=== PATIENT | female | born 1960 ===

== ENCOUNTER 2017-05-22 22:44 | Emergency (ER) | payer MEDICAID ==
[2017-05-22 22:45] VITALS: BMI 34.0
[2017-05-22 22:58] VITALS: TEMP 97.8
[2017-05-23 00:01] VITALS: PULSE 71; RESP 18; O2SAT 98
--- NOTE | 2017-05-23 00:10 | C.PDOC ---
History Of Present Illness 54 year old female who presents to the ER with a complaint of neck pain and headache pain consistent with her fibromyalgia. Patient is requesting a refill of her valium tablets. [facility] reviewed, patient was found to have refills and many prescribers. Time Seen by Provider: 05/22/17 23:45 Chief Complaint (Nursing): Chest Pain History Per: Patient History/Exam Limitations: no limitations Onset/Duration Of Symptoms: Days Current Symptoms Are (Timing): Still Present Associated Symptoms: denies: Nausea, Dyspnea, Diaphoresis Modifying Factors: None Exacerbating Factors: None Alleviating Factors: None Recent travel outside of the [place]: No Past Medical History Reviewed: Historical Data, Nursing Documentation, Vital Signs Vital Signs: Last Vital Signs Temp 97.8 F 05/22/17 22:56 Pulse 71 05/23/17 00:00 Resp 18 05/23/17 00:00 BP 145/69 05/23/17 00:00 Pulse Ox 98 05/23/17 03:30 - Medical History PMH: Arthritis, CAD, Depression, Diabetes, Fibromyalgia, HTN, Hypercholesterolemia, Migraine Surgical History: Cholecystectomy, Endoscopy - [facility] Procedures APPLICATION OF SPLINT (11/09/14) Family History: States: Unknown Family Hx - Social History Hx Tobacco Use: No Hx Alcohol Use: No Hx Substance Use: No - Immunization History Hx Tetanus Toxoid Vaccination: Yes Hx Influenza Vaccination: Yes Hx Pneumococcal Vaccination: Yes Review Of Systems Constitutional: Negative for: Fever, Chills Gastrointestinal: Negative for: Nausea, Vomiting Musculoskeletal: Positive for: Neck Pain Neurological: Positive for: Headache Physical Exam - Physical Exam Appears: Non-toxic, No Acute Distress, Other (Anxious) Skin: Normal Color, Warm, Dry Head: Atraumatic, Normacephalic Oral Mucosa: Moist Neck: Normal ROM, Paracervical Tenderness (Trapezious) Chest: Symmetrical, No Tenderness Cardiovascular: Rhythm Regular, No Murmur Respiratory: Normal Breath Sounds, No Rales, No Rhonchi, No Wheezing Gastrointestinal/Abdominal: Soft, No Tenderness Neurological/Psych: Oriented x3, Normal Speech, Normal Cognition ED Course And Treatment ECG: Interpreted By Me, Viewed By Me ECG Rhythm: Sinus Rhythm ECG Interpretation: Normal Rate From EC O2 Sat by Pulse Oximetry: 98 (Room air) Pulse Ox Interpretation: Normal Progress Note: EKG ordered. Ultram and motrin administered. Medical Decision Making Medical Decision Making: anxiety/fibromyalgia normal neuro/cardio eval-nl ekg ? drug seeking- asking for 5 tabs of valium [place] reviewed, may prescribers for valium x 5 tabs Explained we cannot/will not refill chronic meds- verbalized understanding. Disposition Doctor Will See Patient In The: Office Counseled Patient/Family Regarding: Studies Performed, Diagnosis - Disposition Referrals: Leyda Rae MD [Medical Doctor] - Disposition: HOME/ ROUTINE Disposition Time: 00:10 Condition: GOOD Additional Instructions: no esta permitido rellenar ayesha medicamentos controllados en la so de emergencias Sigue Ibuprofeno 600 mg o' tylenol 1000 mg cada 6 horas jenny necessario Sigue con harry Medico. Instructions: General Headache (ED) Forms: [employer] (Pakistani) Print Language: INDONESIAN - Clinical Impression Clinical Impression: Anxiety, Chronic headache disorder - Scribe Statement The provider has reviewed the documentation as recorded by the Scribarvind Tony All medical record entries made by the Scribe were at my direction and personally dictated by me. I have reviewed the chart and agree that the record accurately reflects my personal performance of the history, physical exam, medical decision making, and the department course for this patient. I have also personally directed, reviewed, and agree with the discharge instructions and disposition.
[2017-05-23 00:21] VITALS: BP 145/69
--- NOTE | 2017-05-25 13:09 | CARD ---
APPROVED REPORT EKG Measurement Heart [id number] <Conclusion> Normal sinus rhythm Cannot rule out Inferior infarct, age undetermined Abnormal ECG
== END 2017-05-23 00:21 | disposition home or self-care (01) ==
LOC: C.ER 22:44
DX: F41.9 Anxiety disorder, unspecified (principal); G89.29 Other chronic pain; R51 Headache

== ENCOUNTER 2017-08-20 21:31 | Emergency (ER) | payer MEDICAID ==
[2017-08-20 21:31] VITALS: BMI 34.0
[2017-08-20 21:36] VITALS: TEMP 97.7; O2SAT 97
--- NOTE | 2017-08-20 22:35 | C.PDOC ---
History Of Present Illness Patient is a 56 y/o female who presents to the ED c/o sharp, intermittent headache pains in the left head area 3-4 times per day and requests refills of narcotic pain relievers. Patient has a Hx of chronic VÁSQUEZ; admits to seeing neurologist and has Fioricet at home. Patient reports to have been VÁSQUEZ free for a few weeks. No other physical complaints at this time. chronic headaches, fibromyalgia, anxiety, ? drug seeking [place] [employer] reviewed- 08/04/17 Rx from another prescriber in . reading, smiling, using telephone, NAD, certainly does not seem to be narcotic level pain Pt has neurologist and Fioricet to use @ home, follow-up pending. AGAIN explained unable to refill controlled substances for chronic issues (as in our prior visit 06/04) Time Seen by Provider: 08/20/17 22:21 Chief Complaint (Nursing): Headache History Per: Patient History/Exam Limitations: no limitations Onset/Duration Of Symptoms: Intermittent Episodes Quality: Sharp Recent travel outside of the [place]: No Past Medical History Reviewed: Historical Data, Nursing Documentation, Vital Signs Vital Signs: Last Vital Signs Temp 97.7 F 08/20/17 21:34 Pulse 78 08/20/17 22:44 Resp 20 08/20/17 22:44 BP 132/78 08/20/17 22:44 Pulse Ox 97 08/20/17 22:44 - Medical History PMH: Arthritis, CAD, Depression, Diabetes, Fibromyalgia, HTN, Hypercholesterolemia, Migraine Denies: HIV, Chronic Kidney Disease, Seizures, Sexually Transmitted Disease Surgical History: Cholecystectomy, Endoscopy - [facility] Procedures APPLICATION OF SPLINT (11/09/14) Family History: States: Unknown Family Hx - Social History Hx Tobacco Use: No Hx Alcohol Use: No Hx Substance Use: No - Immunization History Hx Tetanus Toxoid Vaccination: Yes Hx Influenza Vaccination: Yes Hx Pneumococcal Vaccination: Yes Review Of Systems Constitutional: Negative for: Fever, Chills Gastrointestinal: Negative for: Nausea, Vomiting Neurological: Positive for: Headache (left head area ) Physical Exam - Physical Exam Appears: Well, Non-toxic, No Acute Distress, Other (smiling) Skin: Normal Color, Warm, Dry Head: Atraumatic, Normacephalic Eye(s): bilateral: Photophobia (negative) Oral Mucosa: Moist Chest: Symmetrical Cardiovascular: Rhythm Regular, No Murmur Respiratory: Normal Breath Sounds, No Rales, No Rhonchi, No Wheezing Neurological/Psych: Oriented x3, Normal Speech, Normal Cognition, Other (no focal deficits) ED Course And Treatment O2 Sat by Pulse Oximetry: 97 Disposition Doctor Will See Patient In The: Office Counseled Patient/Family Regarding: Studies Performed, Diagnosis - Disposition Referrals: Leyda Rae MD [Medical Doctor] - Disposition: HOME/ ROUTINE Disposition Time: 22:35 Condition: GOOD Additional Instructions: favor de seguir con harry neurologo para rellenos de ayesha medicamentos de sustancias controlladas. Instructions: Cluster Headache (ED) Forms: [employer] (Georgian) Print Language: CITIZEN OF [place] - Clinical Impression Clinical Impression: Chronic headache disorder - Scribe Statement The provider has reviewed the documentation as recorded by the Scribe Mary Anne Quintana All medical record entries made by the Scribe were at my direction and personally dictated by me. I have reviewed the chart and agree that the record accurately reflects my personal performance of the history, physical exam, medical decision making, and the department course for this patient. I have also personally directed, reviewed, and agree with the discharge instructions and disposition.
[2017-08-20 22:46] VITALS: BP 132/78; PULSE 78; RESP 20
== END 2017-08-20 22:44 | disposition home or self-care (01) ==
LOC: C.ER 21:31
DX: G89.29 Other chronic pain (principal); R51 Headache; E11.9 Type 2 diabetes mellitus without complications; E78.00 Pure hypercholesterolemia, unspecified; I10 Essential (primary) hypertension; M79.7 Fibromyalgia; I25.10 Atherosclerotic heart disease of native coronary artery without angina pectoris

== ENCOUNTER 2018-01-26 00:13 | Emergency (ER) | payer MEDICAID ==
[2018-01-26 00:40] VITALS: BMI 26.6
[2018-01-26 00:44] VITALS: BP 131/82; PULSE 82; RESP 22; TEMP 97.3; O2SAT 98
--- NOTE | 2018-01-26 01:14 | C.PDOC ---
History Of Present Illness 57 year old female presents to the emergency department complaining of right wrist pain, onset today. Patient states she was "playing with a door" and got her right wrist caught in the door frame. She is able to move all fingers. No changes in sensation. Time Seen by Provider: 01/26/18 00:42 Chief Complaint (Nursing): Upper Extremity Problem/Injury History Per: Patient History/Exam Limitations: no limitations Onset/Duration Of Symptoms: Days (x1) Current Symptoms Are (Timing): Still Present Past Medical History Reviewed: Historical Data, Nursing Documentation, Vital Signs Vital Signs: Last Vital Signs Temp 97.3 F L 01/26/18 00:40 Pulse 82 01/26/18 00:40 Resp 22 01/26/18 00:40 BP 131/82 01/26/18 00:40 Pulse Ox 98 01/26/18 01:43 - Medical History PMH: Arthritis, CAD, Depression, Diabetes, Fibromyalgia, HTN, Hypercholesterolemia, Migraine Denies: HIV, Chronic Kidney Disease, Seizures, Sexually Transmitted Disease Surgical History: Cholecystectomy, Endoscopy - [facility] Procedures APPLICATION OF SPLINT (11/09/14) Family History: States: Unknown Family Hx - Social History Hx Tobacco Use: No Hx Alcohol Use: No Hx Substance Use: No - Immunization History Hx Tetanus Toxoid Vaccination: Yes Hx Influenza Vaccination: Yes Hx Pneumococcal Vaccination: Yes Review Of Systems Musculoskeletal: Positive for: Hand Pain (right wrist) Neurological: Negative for: Weakness, Numbness Physical Exam - Physical Exam Appears: Non-toxic, No Acute Distress Skin: Warm, Dry, No Rash Head: Atraumatic, Normacephalic Eye(s): bilateral: Normal Inspection Extremity: Normal ROM, Tenderness (mild tenderness to right wrist), Capillary Refill (< 2 sec), No Deformity, Other (round ecchymotic lesion noted to right radial wrist, with abrasion to the ulnar wrist) Pulses: Left Radial: Normal, Right Radial: Normal Neurological/Psych: Oriented x3, Normal Speech, No Other (focal deficits) ED Course And Treatment O2 Sat by Pulse Oximetry: 98 (RA) Pulse Ox Interpretation: Normal - Other Rad X-Ray Right Wrist X-Ray: Interpreted by Me, Viewed By Me Interpretation: Negative fracture, negative dislocation Medical Decision Making Medical Decision Making: Impression: Right wrist injury Plan: * Toradol 30 mg IM * X-Ray right wrist Progress: Xray negative for fracture. On reevaluation patient reports improvement in pain. Informed patient of negative x-ray. Velcro volar splint applied to right wrist by RN. Patient counseled regarding diagnosis and advised to follow up with orthopedist for persistent symptoms. Disposition Counseled Patient/Family Regarding: Diagnosis, Need For Followup, Rx Given - Disposition Referrals: Jan Burgess III, MD [Staff Provider] - Disposition: HOME/ ROUTINE Disposition Time: 01:12 Condition: GOOD Additional Instructions: Tu radiografa fue normal, sin fractura. Por favor aplique hielo en el cr 15 minutos lazaro veces al da. [place] Motrin con Pepcid segn sea necesario para el dolor cada 6 horas, para no alterar el estmago. Delia un seguimiento con ortopedia si el dolor persiste annamaria hayden semana. Prescriptions: Famotidine [Pepcid] 20 mg PO DAILY #20 tab Ibuprofen [Motrin] 1 tab PO TID PRN #30 tab PRN Reason: Pain Instructions: Contusion (DC) Forms: [employer] (Sierra Leonean) Print Language: INDONESIAN - POA Present On Arrival: None - Clinical Impression Clinical Impression: Wrist contusion - PA / SOCIAL WORK ASSOCIATE / Resident Statement MD/DO has reviewed & agrees with the documentation as recorded. - Scribe Statement The provider has reviewed the documentation as recorded by the Scribe (Feli Colon) All medical record entries made by the Scribe were at my direction and personally dictated by me. I have reviewed the chart and agree that the record accurately reflects my personal performance of the history, physical exam, medical decision making, and the department course for this patient. I have also personally directed, reviewed, and agree with the discharge instructions and disposition.
--- NOTE | 2018-01-26 12:51 | RAD ---
PROCEDURE: Right Wrist Radiographs. HISTORY: pain s.p injury, door closed COMPARISON: None. FINDINGS: BONES: Normal. No fracture. JOINTS: Minimal arthropathic changes: Radiocarpal and metacarpal joint. No dislocation. SOFT TISSUES: Normal. OTHER FINDINGS: None. IMPRESSION: No fracture or dislocation. . Mild arthropathic changes
== END 2018-01-26 01:23 | disposition home or self-care (01) ==
LOC: C.ER 00:13
DX: S60.211A Contusion of right wrist, initial encounter (principal); W23.0XXA Caught, crushed, jammed, or pinched between moving objects, initial encounter
CPT/HCPCS: 73110; 96372; 99284; J1885

== ENCOUNTER 2018-02-20 21:50 | Emergency (ER) | payer MEDICAID ==
[2018-02-20 21:50] VITALS: BMI 26.6
[2018-02-20 22:09] VITALS: BP 131/84; PULSE 86; RESP 20; TEMP 97.8; O2SAT 98
--- NOTE | 2018-02-20 22:26 | C.PDOC ---
History Of Present Illness 57 yo female w/PMHx of NIDDM, chronic headache, seasonal allergy come in for evaluation of B/L eyes redness, itchiness, clear discharges gradually developed for past 2 days, (+) nasal congestion, clear rhinorrhea. Pt reports, use antihistamine eye drops, Claritin without improvement. Otherwise, pt denies high fever, chills, headache, vertigo, visual changes, focal deficits, bluury vision, FB sensation, pain on eye movement, throat tightness or swelling, dysphagia, dyspnea, SOB, wheezing, abd. pain, N/V, denies any other active complaints. Ambulate to Ed for evaluation, not in any apparent distress. Time Seen by Provider: 02/20/18 22:10 Chief Complaint (Nursing): ENT Problem History Per: Patient Past Medical History Reviewed: Historical Data, Nursing Documentation, Vital Signs Vital Signs: Last Vital Signs Temp 97.8 F 02/20/18 22:05 Pulse 86 02/20/18 22:05 Resp 20 02/20/18 22:05 BP 131/84 02/20/18 22:05 Pulse Ox 98 02/20/18 22:05 - Medical History PMH: Arthritis, CAD, Depression, Diabetes, Fibromyalgia, HTN, Hypercholesterolemia, Migraine Denies: HIV, Chronic Kidney Disease, Seizures, Sexually Transmitted Disease Surgical History: Cholecystectomy, Endoscopy - [facility] Procedures APPLICATION OF SPLINT (11/09/14) Family History: States: Unknown Family Hx - Social History Hx Tobacco Use: No Hx Alcohol Use: No Hx Substance Use: No - Immunization History Hx Tetanus Toxoid Vaccination: Yes Hx Influenza Vaccination: Yes Hx Pneumococcal Vaccination: Yes Review Of Systems Except As Marked, All Systems Reviewed And Found Negative. Constitutional: Negative for: Fever, Chills Eyes: Positive for: Conjunctivae Inflammation, Redness. Negative for: Pain, Vision Change, Eyelid Inflammation ENT: Positive for: Nose Congestion. Negative for: Ear Discharge, Nose Discharge , Throat Pain, Throat Swelling Cardiovascular: Negative for: Chest Pain, Palpitations, Light Headedness Respiratory: Negative for: Cough, Shortness of Breath, Wheezing Gastrointestinal: Negative for: Nausea, Vomiting, Abdominal Pain Musculoskeletal: Negative for: Neck Pain Skin: Negative for: Rash Neurological: Negative for: Weakness, Numbness, Altered Mental Status, Headache , Dizziness Physical Exam - Physical Exam Appears: Well, Non-toxic, No Acute Distress Skin: Normal Color, Warm, Dry, No Rash Head: Normacephalic Eye(s): bilateral: PERRL, EOMI (no pain or limitation on extraocular movement B/ L), Other (scant periorbital edema and erythema. Mild conjunctival injection L> R with clear discharges. No periorbital cellulitis.) Ear(s): Bilateral: Normal Nose: No Flaring, Discharge (B/L nasal congestion with scant clear rhinorrhea) Oral Mucosa: Moist, No Drooling Tongue: Normal Appearing, No Swelling Lips: Normal Appearing, No Swelling Throat: No Erythema, No Drooling, Other (Uvula midline, no edema) Neck: Trachea Midline, Supple Cardiovascular: Rhythm Regular, No Murmur, No JVD Respiratory: No Decreased Breath Sounds, No Accessory Muscle Use, No Stridor, No Wheezing Extremity: Normal ROM, No Deformity, No Swelling Neurological/Psych: Oriented x3, Normal Speech ED Course And Treatment O2 Sat by Pulse Oximetry: 98 Pulse Ox Interpretation: Normal Progress Note: On re-evaluation, pt is afebrile, hemodynamicaly stable. Non- toxic. PulsEOx 98% RA. ENT: no acute findings, uvula midline, no edema. Eyes : exam c/w scant periorbital edema and erythema with mild conjunctival injection , clear discharge r/o allergic conjunctivitis. No pain or limitation on extraocular movement. No evidence of periorbital cellulitis. neck: Supple, (-) meningeal sign. Lungs: CTA B/L, BS equal B/L. Neuorlogicaly intact. Pt advised onc oruse of ds. ref. to f/u with PMD, opht in 2-3 days for re-eval. return to Ed if any worsening ro new changes. Disposition Counseled Patient/Family Regarding: Diagnosis, Need For Followup, Rx Given - Disposition Referrals: Suyapa Cisneros MD [Medical Doctor] - Rocael Graves MD [Staff Provider] - Disposition: HOME/ ROUTINE Disposition Time: 22:25 Condition: STABLE Additional Instructions: Encourage fluids Cold compresses to eyes area Take medication as prescribed Continue Claritin daily, Ketotifen eyes drops as need Follow up with PMD, Ophthalmology in 2-3 days for re-evaluation. Return to ED if any worsening or new changes. Prescriptions: Prednisone [Deltasone] 40 mg PO DAILY #8 tablet Instructions: Seasonal Allergies in Adults Print Language: BRITISH - Clinical Impression Clinical Impression: Allergic conjunctivitis, Seasonal allergies
== END 2018-02-20 23:00 | disposition home or self-care (01) ==
LOC: C.ER 21:50
DX: H10.13 Acute atopic conjunctivitis, bilateral (principal); J30.2 Other seasonal allergic rhinitis

== ENCOUNTER 2018-03-26 22:55 | Emergency (ER) | payer MEDICAID ==
[2018-03-26 22:55] VITALS: BMI 26.6
[2018-03-26 23:03] VITALS: BP 127/80; PULSE 80; RESP 15; TEMP 98.1; O2SAT 98
--- NOTE | 2018-03-27 00:42 | C.PDOC ---
History Of Present Illness 57 y/o female, whose PMHx includes Fibromyalgia, presents to the ED for evaluation of right leg pain x 1 week. Patient describes symptoms are a burning sensation to her right posterior thigh which radiates down to her right calf. Patient has been applying a topical gel without relief. She denies rash, trauma , extremity numbness/weakness, or recent travel. Time Seen by Provider: 03/26/18 23:23 Chief Complaint (Nursing): Lower Extremity Problem/Injury History Per: Patient History/Exam Limitations: no limitations Onset/Duration Of Symptoms: Other (1 week) Current Symptoms Are (Timing): Still Present Recent travel outside of the [place]: No Past Medical History Reviewed: Historical Data, Nursing Documentation, Vital Signs Vital Signs: Last Vital Signs Temp 98.1 F 03/26/18 23:01 Pulse 80 03/26/18 23:01 Resp 15 03/26/18 23:01 BP 127/80 03/26/18 23:01 Pulse Ox 98 03/27/18 06:31 - Medical History PMH: Arthritis, CAD, Depression, Diabetes, Fibromyalgia, HTN, Hypercholesterolemia, Migraine Denies: HIV, Chronic Kidney Disease, Seizures, Sexually Transmitted Disease Surgical History: Cholecystectomy, Endoscopy - [facility] Procedures APPLICATION OF SPLINT (11/09/14) Family History: States: Unknown Family Hx - Social History Hx Tobacco Use: No Hx Alcohol Use: No Hx Substance Use: No - Immunization History Hx Tetanus Toxoid Vaccination: Yes Hx Influenza Vaccination: Yes Hx Pneumococcal Vaccination: Yes Review Of Systems Except As Marked, All Systems Reviewed And Found Negative. Musculoskeletal: Positive for: Leg Pain (right) Skin: Negative for: Rash Neurological: Negative for: Weakness, Numbness Physical Exam - Physical Exam Appears: Non-toxic, No Acute Distress, Other (mildly obese female ) Skin: Normal Color, Warm, Dry, No Rash Head: Atraumatic, Normacephalic Eye(s): bilateral: Normal Inspection, PERRL, EOMI Oral Mucosa: Moist Throat: No Erythema, No Exudate Neck: Normal ROM, Supple Chest: Symmetrical, No Deformity, No Tenderness Cardiovascular: Rhythm Regular, No Friction Rub, No Murmur Respiratory: Normal Breath Sounds, No Rales, No Rhonchi, No Wheezing Gastrointestinal/Abdominal: Soft, No Tenderness Back: Normal Inspection, No CVA Tenderness, No Vertebral Tenderness, No Paraspinal Tenderness Extremity: Normal ROM, No Calf Tenderness, Capillary Refill (less than 2 seconds ), No Deformity, No Swelling, Other ((+) tenderness to the posterior thigh) Pulses: Left Dorsalis Pedis: Normal, Right Dorsalis Pedis: Normal Neurological/Psych: Oriented x3, Normal Speech, Normal Cognition, Normal Motor, Normal Sensation Gait: Steady ED Course And Treatment O2 Sat by Pulse Oximetry: 98 (on RA) Pulse Ox Interpretation: Normal Medical Decision Making Medical Decision Making: Progress: Right Femur XR and Right TIb/Fib XR ordered. D-Dimer ordered. Ultram PO given. On re-exam, the patient reports improvement of symptoms. Lungs are CTA, heart is RRR, abdomen is soft, non-tender and tolerating PO well . ambulatory in the ED with steady gait with cane. Follow up with the medical doctor within 1-2 days. Return if worsened. Disposition - Disposition Referrals: [facility] [Outside] Disposition: HOME/ ROUTINE Disposition Time: 00:39 Condition: FAIR Additional Instructions: Follow up with the medical doctor within 1-2 days without fail, return if worsened. Prescriptions: Acetaminophen [Tylenol] 325 mg PO Q6 PRN #30 tab PRN Reason: Pain, Mild (1-3) traMADol [Ultram] 50 mg PO Q6 PRN #15 tab PRN Reason: Pain Instructions: Muscle Spasms (DC) Forms: [employer] (Turkmen) Print Language: ESTONIAN - Clinical Impression Clinical Impression: Muscle cramp - PA / KENNEL MANAGER DOG TRACK / Resident Statement MD/DO has reviewed & agrees with the documentation as recorded. - Scribe Statement The provider has reviewed the documentation as recorded by the Scribe (Fallon Hanna) All medical record entries made by the Scribe were at my direction and personally dictated by me. I have reviewed the chart and agree that the record accurately reflects my personal performance of the history, physical exam, medical decision making, and the department course for this patient. I have also personally directed, reviewed, and agree with the discharge instructions and disposition.
--- NOTE | 2018-03-27 14:52 | RAD ---
PROCEDURE: Radiographs of the right tibia and fibula. HISTORY: pain to the rangel, non-trauma COMPARISON: None available. TECHNIQUE: Frontal and lateral views obtained. FINDINGS: BONES: No fracture or destructive lesion. JOINT SPACES: Unremarkable. OTHER FINDINGS: Calcaneus spur is noted. IMPRESSION: No evidence of acute pathology or destructive bony lesion.
--- NOTE | 2018-03-27 14:56 | RAD ---
PROCEDURE: Right Femur Radiographs. HISTORY: pain to the femur, COMPARISON: None. TECHNIQUE: AP and Lateral Radiographs of the right femur. FINDINGS: FEMUR: Normal. No fracture. SOFT TISSUES: Normal. OTHER FINDINGS: None. IMPRESSION: No evidence of acute fracture or destructive bony lesion.
== END 2018-03-27 00:51 | disposition home or self-care (01) ==
LOC: C.ER 22:55
DX: R25.2 Cramp and spasm (principal); I10 Essential (primary) hypertension; E11.9 Type 2 diabetes mellitus without complications; E78.00 Pure hypercholesterolemia, unspecified; M79.7 Fibromyalgia

== ENCOUNTER 2018-05-16 20:44 | Emergency (ER) | payer MEDICAID ==
[2018-05-16 20:45] VITALS: BMI 26.6
[2018-05-16 21:28] VITALS: BP 116/71; PULSE 75; TEMP 98; O2SAT 97
--- NOTE | 2018-05-16 22:18 | C.PDOC ---
History Of Present Illness 57yo female, comes to ER with complaints of pain and swelling to the left side of her neck, worsened with swallowing. Otherwise, patient denies any associated fever, chills, cough, vomiting, headache or dizziness. She offers no additional medical complaints. Time Seen by Provider: 05/16/18 21:32 Chief Complaint (Nursing): ENT Problem History Per: Patient History/Exam Limitations: None Onset/Duration Of Symptoms: Days Current Symptoms Are (Timing): Still Present Past Medical History Reviewed: Historical Data, Nursing Documentation, Vital Signs Vital Signs: Last Vital Signs Temp 98 F 05/16/18 21:22 Pulse 75 05/16/18 21:22 Resp 20 05/16/18 22:26 BP 116/71 05/16/18 21:22 Pulse Ox 97 05/17/18 01:31 - Medical History PMH: Arthritis, CAD, Depression, Diabetes, Fibromyalgia, HTN, Hypercholesterolemia, Migraine Denies: HIV, Chronic Kidney Disease, Seizures, Sexually Transmitted Disease Surgical History: Cholecystectomy, Endoscopy - [facility] Procedures APPLICATION OF SPLINT (11/09/14) Family History: States: Unknown Family Hx - Social History Hx Tobacco Use: No Hx Alcohol Use: No Hx Substance Use: No - Immunization History Hx Tetanus Toxoid Vaccination: Yes Hx Influenza Vaccination: Yes Hx Pneumococcal Vaccination: Yes Review Of Systems Constitutional: Negative for: Fever, Chills Respiratory: Negative for: Cough Gastrointestinal: Negative for: Vomiting Musculoskeletal: Positive for: Other (swelling to left side of neck) Neurological: Negative for: Headache, Dizziness Physical Exam - Physical Exam Appears: Non-toxic Skin: Warm, Dry Head: Normacephalic Eye(s): bilateral: Normal Inspection Ear(s): Bilateral: Normal Nose: Normal Oral Mucosa: Moist Throat: Erythema, No Exudate, No Drooling, No Mass, Other (+ left tonsil swelling or erythema; + uvula midline) Neck: Normal ROM, Supple Lymphatic: Adenopathy (left submandibular lymphadenopathy with tenderness) Chest: Symmetrical Cardiovascular: Rhythm Regular Respiratory: Normal Breath Sounds Neurological/Psych: Oriented x3 ED Course And Treatment O2 Sat by Pulse Oximetry: 97 (RA) Pulse Ox Interpretation: Normal Progress Note: Patient given Motrin and first dose of antibiotics in ER. Instructed to take medications as prescribed and to follow up with PMD in 2-3 days. Reassessment Condition: Improved Disposition Counseled Patient/Family Regarding: Diagnosis, Need For Followup, Rx Given - Disposition Referrals: [facility] [Outside] PMD, Private [Other] Disposition: HOME/ ROUTINE Disposition Time: 22:16 Condition: STABLE Additional Instructions: Gargle with warm salt water Take medications as directed Follow up with PMD Return to ER if worse Prescriptions: Ibuprofen [Motrin] 600 mg PO Q6H #20 tab Penicillin VK [Penicillin VK Tab] 2 tab PO BID #28 tab Instructions: Sore Throat, Adult (DC) Forms: [employer] (Cameroonian) Print Language: CROATIAN - Clinical Impression Clinical Impression: Pharyngitis, Lymphadenitis, acute - PA / SALES AND MARKETING REPRESENTATIVE / Resident Statement MD/DO has reviewed & agrees with the documentation as recorded. - Scribe Statement The provider has reviewed the documentation as recorded by the Angely Correa Provider Attestation: All medical record entries made by the Angely were at my direction and personally dictated by me. I have reviewed the chart and agree that the record accurately reflects my personal performance of the history, physical exam, medical decision making, and the department course for this patient. I have also personally directed, reviewed, and agree with the discharge instructions and disposition.
[2018-05-16 22:27] VITALS: RESP 20
== END 2018-05-16 22:26 | disposition home or self-care (01) ==
LOC: C.ER 20:44
DX: J02.9 Acute pharyngitis, unspecified (principal); L04.9 Acute lymphadenitis, unspecified

== ENCOUNTER 2018-08-10 20:17 | Observation (INO) | payer MEDICAID ==
[2018-08-10 20:18] VITALS: BMI 26.6
[2018-08-10 21:01] LABS: BASO % 0.6 % (0.0-2.0); EOS % 0.5 % (0.0-4.0); HEMOGLOBIN 12.6 g/dL (11.0-16.0); LYMPH # 1.6 K/uL (1.0-4.3); LYMPH % 24.1 % (20.0-40.0); MEAN CORPUSCULAR HEMOGLOBIN 26.7 pg (27.0-31.0); MEAN CORPUSCULAR HGB CONC 32.9 g/dL (33.0-37.0); MEAN PLATELET VOLUME 7.2 fL (7.2-11.7); MONO # 0.5 K/uL (0.0-0.8); MONO % 8.2 % (0.0-10.0); NEUT # 4.3 K/uL (1.8-7.0); NEUT % 66.6 % (50.0-75.0); NRBC % 0.2 % (0.0-2.0); RBC 4.72 Mil/uL (3.80-5.20); RED CELL DISTRIBUTION WIDTH 14.5 % (11.5-14.5); WHITE BLOOD COUNT 6.5 K/uL (4.8-10.8)
[2018-08-10 21:03] LABS: MEAN CELL VOLUME 81.2 fL (81.0-99.0)
[2018-08-10 21:09] LABS: ALB/GLOB RATIO 1.2 (1.0-2.1); ALBUMIN 4.5 g/dL (3.5-5.0); ALT/SGPT 33 U/L (9-52); AST/SGOT 49 U/L (14-36); BLOOD UREA NITROGEN 8 mg/dL (7-17); CALCIUM 9.2 mg/dl (8.6-10.4); GFR NON-AFRICAN AMERICAN > 60; INR 1.1
--- NOTE | 2018-08-10 21:15 | C.PDOC ---
History Of Present Illness 57 year old female with PMHx of HTN, DM and fibromyalgia presents to the ED c/o SOB associated with chest pain, generalized body aches and headache for the past 3 days. Patient reports she feels SOB when she talks. Patient recently got back from [place] on Thursday, patient states she as feeling SOB on the plane and the hatchery attendant gave her some oxygen. Patient denies fever, chills, nausea, vomit, dizziness, diarrhea, weakness, numbness. Time Seen by Provider: 08/10/18 21:00 Chief Complaint (Nursing): Cough, Cold, Congestion History Per: Patient History/Exam Limitations: no limitations Onset/Duration Of Symptoms: Days (3) Location Of Pain: Diffuse Myalgias, Headache Sick Contacts (Context): None Ear Symptoms: Bilateral: None Recent travel outside of the [place]: Yes (Back from [place] on Thursday) Additional History Per: Patient Past Medical History Reviewed: Historical Data, Nursing Documentation, Vital Signs Vital Signs: Last Vital Signs Temp 98.8 F 08/10/18 20:30 Pulse 100 H 08/10/18 20:30 Resp 20 08/10/18 20:30 BP 151/83 H 08/10/18 20:30 Pulse Ox 99 08/10/18 20:30 - Medical History PMH: Arthritis, CAD, Depression, Diabetes, Fibromyalgia, HTN, Hypercholesterolemia, Migraine Denies: HIV, Chronic Kidney Disease, Seizures, Sexually Transmitted Disease Surgical History: Cholecystectomy, Endoscopy - [facility] Procedures APPLICATION OF SPLINT (11/09/14) Family History: States: Unknown Family Hx - Social History Hx Tobacco Use: No Hx Alcohol Use: No Hx Substance Use: No - Immunization History Hx Tetanus Toxoid Vaccination: Yes Hx Influenza Vaccination: Yes Hx Pneumococcal Vaccination: Yes Review Of Systems Except As Marked, All Systems Reviewed And Found Negative. Cardiovascular: Positive for: Chest Pain Respiratory: Positive for: Shortness of Breath Neurological: Positive for: Headache Physical Exam - Physical Exam Additional Physical Exam Comments: Constitutional: Appears short of breath Head: Normocephalic. Atraumatic. Eyes: PERRL. ENT: Moist mucous membranes. Neck: Supple. Cardiovascular: Regular rate. Radial pulse 2+ bilaterally. Chest: No tenderness. Respiratory: Clear to auscultation bilaterally. GI: Soft. Nontender. Nondistended. Back: No CVA tenderness. Musculoskeletal: No tenderness or swelling of extremities. Skin: No rash. Neurologic: Alert, no focal deficit. ED Course And Treatment - Laboratory Results Result Diagrams: 08/10/18 20:52 08/10/18 20:52 O2 Sat by Pulse Oximetry: 99 (ON RA) Pulse Ox Interpretation: Normal Medical Decision Making Medical Decision Making: Plan: * EKG * Labs * CXR * Influenza A B test CT IMPRESSION: Due to suboptimal IV bolus, while unlikely, PE is not excluded at segmental and subsegmental branches No evidence of central pulmonary embolism. Electronically signed on Aug 10, 2018 10:57:41 PM EDT by: Cameron Cabello M.D., SUNITA Certified By [facility] Fellowship Trained MRI and CT Specialist Dr. Savage accepts patient to medical service for V/Q tomorrow to further evaluate for PE. Disposition - Disposition Disposition: HOSPITALIZED Disposition Time: 22:58 Condition: FAIR Forms: [facility] ([place]er) - Clinical Impression Clinical Impression: Shortness of breath - Scribe Statement The provider has reviewed the documentation as recorded by the Scribe Kannan Bernstein All medical record entries made by the Scribe were at my direction and personally dictated by me. I have reviewed the chart and agree that the record accurately reflects my personal performance of the history, physical exam, medical decision making, and the department course for this patient. I have also personally directed, reviewed, and agree with the discharge instructions and disposition.
[2018-08-10] MEDS ORDERED: Iodixanol 320 MG/ML 100 ML BOTTLE IV ONE (21:55)
[2018-08-10 22:02] LABS: CK-MB < 0.22 ng/mL (0.0-3.38)
[2018-08-10] MEDS ORDERED: Albuterol-Ipratrop 3 mg / 0.5 (3 ml) UD INH PRN (23:42)
[2018-08-10] MEDS ORDERED: Enoxaparin 150 mg Syringe SC SCH (23:45)
[2018-08-11] MEDS ORDERED: Enoxaparin 80 mg Syringe ONE (00:01)
--- NOTE | 2018-08-11 07:44 | RAD ---
Date of service: 08/10/2018 HISTORY: SOB, CHEST PAIN COMPARISON: Chest radiograph 08/02/2015. TECHNIQUE: Chest PA and lateral FINDINGS: LUNGS: No active pulmonary disease. PLEURA: No significant pleural effusion identified. No pneumothorax apparent. CARDIOVASCULAR: No aortic atherosclerotic calcification present OSSEOUS STRUCTURES: No significant abnormalities. VISUALIZED UPPER ABDOMEN: Normal. OTHER FINDINGS: None. IMPRESSION: No interval acute cardiopulmonary disease appreciated.
[2018-08-11] MEDS ORDERED: Home Med 1 UNIT (Simvastatin [Simvastatin] 40 MG) PO SCH (10:00)
[2018-08-11] MEDS ORDERED: Home Med 1 UNIT (Losartan/Hydrochlorothiazide [Losartan-Hctz 100-25 Mg Tab] 1 TAB) PO SCH (10:00)
[2018-08-11] MEDS ORDERED: LORATADINE 10 MG PO SCH (10:00)
[2018-08-11] MEDS ORDERED: GLYBURIDE 3 MG PO SCH (10:00)
--- NOTE | 2018-08-11 10:23 | CT ---
Date of service: 08/10/2018 CTA chest PE protocol Indication: dyspnea, r/o PE Technique: Contiguous axial images were obtained through the chest with intravenous contrast enhancement. Sagittal and coronal reconstructions were generated and reviewed. This CT exam was performed using 1 or more of the following dose reduction techniques: Automated exposure control, adjustment of the MAA and/or kV according to patient size, and/or use of iterative reconstruction technique. IV contrast: 100 cc visi opaque 320 IV Radiation dose (DLP): 513.52 MGy-cm. Comparison: Chest x-ray performed 08/10/18 Findings: Visualized portions of the inferior thyroid gland appear unremarkable. The mediastinal and hilar vascular structures appear within normal limits. The heart appears within normal limits of size. Mild atherosclerotic calcification of the aorta present. There is suboptimal opacification of the pulmonary arteries due to missed bolus of the intravenous contrast limiting evaluation for pulmonary embolus. Pulmonary embolus cannot be excluded on the basis of this study. No focal consolidation. No pleural effusion. No pneumothorax. No suspicious pulmonary nodules measuring greater than 5 mm. Limited visualized portions of the upper abdomen: Partially imaged hepatomegaly. Subtle nodular hepatic contour. Evidence of cholecystectomy. Degenerative changes of the spine. Osseous demineralization. Impression: There is suboptimal opacification of the pulmonary arteries due to missed bolus of the intravenous contrast limiting evaluation for pulmonary embolus. Pulmonary embolus cannot be excluded on the basis of this study. Limited visualized portions of the upper abdomen: Partially imaged hepatomegaly. Subtle nodular hepatic contour. Evidence of cholecystectomy. Preliminary impression was provided by [employer].
--- NOTE | 2018-08-11 10:29 | NM ---
Date of service: 08/11/2018 COMPARISON: Portable chest 08/10/2018. CT angiogram chest 08/10/2018 as well TECHNIQUE: 10.6 mCi Xe-133 Gas was utilized for inhalation agent. 3.6 mCI technetium 99-m MAA administered intravenously. FINDINGS: VENTILATION COMPONENT: Normal. PERFUSION COMPONENT: No definite perfusion defect appreciated bilaterally. IMPRESSION: Lowprobability ventilation perfusion scan for pulmonary embolism.
[2018-08-11 10:33] VITALS: RESP 18
[2018-08-11] MEDS ORDERED: Enoxaparin 80 mg Syringe SC SCH (11:00)
--- NOTE | 2018-08-11 12:55 | VASCLAB ---
Date of service: 08/11/2018 PROCEDURE: Lower Extremity Venous Duplex Exam. HISTORY: SHORTNESS OF BREATH PRIORS: None. TECHNIQUE: Bilateral common femoral, femoral, popliteal and posterior tibial, peroneal and great saphenous veins were evaluated. Flow was assessed with color Doppler, compressibility, assessment of phasic flow and augmentation response. Report prepared by BEN Ly FINDINGS: RIGHT: 1. Common Femoral Vein: 1.1. Compressibility - Fully compressible: Thrombus - None : Flow - Phasic: Augmentation -Normal: Reflux - None. 2. Femoral Vein: 2.1. Compressibility - Fully compressible: Thrombus - None : Flow - Phasic: Augmentation -Normal: Reflux - None. 3. Popliteal Vein: 3.1. Compressibility - Fully compressible: Thrombus - None : Flow - Phasic: Augmentation -Normal: Reflux - None. 4. Posterior Tibial Vein: 4.1. Compressibility - Fully compressible: Thrombus - None: Flow - Phasic: Augmentation -Normal: Reflux - None. 5. Peroneal Vein: 5.1. Compressibility - Fully compressible: Thrombus - None: Flow - Phasic: Augmentation -Normal: Reflux - None. 6. Great Saphenous Vein: 6.1. Compressibility - Fully compressible: Thrombus - None: Flow - Phasic: Augmentation - Normal: Reflux - None. LEFT: 1. Common Femoral Vein: 1.1. Compressibility - Fully compressible: Thrombus - None: Flow - Phasic: Augmentation -Normal: Reflux - None. 2. Femoral Vein: 2.1. Compressibility - Fully compressible: Thrombus - None: Flow - Phasic: Augmentation -Normal: Reflux - None. 3. Popliteal Vein: 3.1. Compressibility - Fully compressible: Thrombus - None : Flow - Phasic: Augmentation -Normal: Reflux - None. 4. Posterior Tibial Vein: 4.1. Compressibility - Fully compressible: Thrombus - None: Flow - Phasic: Augmentation -Normal: Reflux - None. 5. Peroneal Vein: 5.1. Compressibility - Fully compressible: Thrombus - None: Flow - Phasic: Augmentation -Normal: Reflux - None. 6. Great Saphenous Vein: 6.1. Compressibility - Fully compressible: Thrombus - None: Flow - Phasic: Augmentation - Normal: Reflux - None. OTHER FINDINGS: Right: None significant. Left: None significant. IMPRESSION: Right: No evidence of deep or superficial vein thrombosis of the right lower extremity. Normal valve function noted of the right side. Left: No evidence of deep or superficial vein thrombosis of the left lower extremity. Normal valve function noted of the left side.
--- NOTE | 2018-08-11 15:42 | CP.PCM.PN ---
Subjective - Date & Time of Evaluation Date of Evaluation: 08/11/18 Time of Evaluation: 15:00 - Subjective Subjective: Ms. Cornejo is a 57 year old female with a PMHx of HTN, DM II, Fibromyalgia, CAD, HLD, Migraines, and Depression who presented complaining of shortness of breath for 3 days when she came back to the [place] from her trip to [place]. Chest CT on admission did not show PE but was a suboptimal study. V/Q scan showed low probability for PE. At this time patient reports major improvement of her shortness of breath. She denies any fever, chills, chest pain, abdominal pain, n/v, changes in bowel habits or diarrhea. ROS: As stated aboe. PMHx: As stated above Allergies: NKDA Objective - Vital Signs/Intake and Output Vital Signs (last 24 hours): Temp Pulse Resp BP Pulse Ox 98.0 F 78 18 111/73 96 08/11/18 07:00 08/11/18 10:00 08/11/18 07:00 08/11/18 07:00 08/11/18 07:00 - Medications Medications: Current Medications Acetaminophen (Tylenol 325mg Tab) 325 mg PO Q6 PRN PRN Reason: Pain, Mild (1-3) Last Admin: 08/11/18 00:01 Dose: 325 mg Albuterol/Ipratropium (Duoneb 3 Mg/0.5 Mg (3 Ml) Ud) 3 ml INH RQ4 PRN PRN Reason: Shortness of Breath Aspirin (Aspirin Chewable) 81 mg PO DAILY [facility] Last Admin: 08/11/18 10:39 Dose: 81 mg Enoxaparin Sodium (Lovenox) 70 mg SC Q12 KHUSHI Last Admin: 08/11/18 11:04 Dose: 70 mg Glyburide (Micronase) 5 mg PO BRK [facility] Last Admin: 08/11/18 11:10 Dose: 5 mg Hydrochlorothiazide (Hydrodiuril) 25 mg PO DAILY [facility] Last Admin: 08/11/18 11:09 Dose: 25 mg Loratadine (Claritin) 10 mg PO DAILY [facility] Last Admin: 08/11/18 11:09 Dose: 10 mg Losartan Potassium (Cozaar) 100 mg PO DAILY [facility] Last Admin: 08/11/18 11:10 Dose: 100 mg Metformin HCl (Glucophage) 1,000 mg PO BIDCC [facility] Last Admin: 08/11/18 11:03 Dose: 1,000 mg Rosuvastatin Calcium (Crestor) 10 mg PO DAILY@2200 [facility] - Labs Labs: 08/10/18 20:52 08/10/18 20:52 PT 12.0 SECONDS (9.7-12.2) 08/10/18 20:52 INR 1.1 08/10/18 20:52 APTT 32 SECONDS (21-34) 08/10/18 20:52 Assessment and Plan - Assessment and Plan (Free Text) Assessment: 57 year old female with a PMHx of HTN, DM II, Fibromyalgia, CAD, HLD, Migraines, and Depression admitted for evaluation and treatment of shortness of breath. Plan: Shortness of Breath. EKG (Admission): NSR w/ Right bundle Branch Block CTA negative for PE but suboptimal study V/Q scan negative for PE. Lovenox 70mg SC Q12H DuoNebs Q4H PRN. HTN ASA 81 Daily HCTZ 25mg PO Daily Losartan 100mg PO Daily Diabetes Metformin 1000 BID Glyburide 5mg PO HLD Rosuvastatin 10mg PO HS Proph HHD Lovenox Dispo: Patient stable for discharge. No new medications will be added. Patient and patient's daughter told to follow up with her primary medical physician within 7 days of discharge.
[2018-08-11 16:10] VITALS: BP 146/66; PULSE 75; TEMP 98.3; O2SAT 98
--- NOTE | 2018-08-11 16:39 | CARD ---
APPROVED REPORT Date of service: 08/11/2018 EXAM: Two-dimensional and M-mode echocardiogram with Doppler and color Doppler. Other Information Quality : GoodRhythm : INDICATION Dyspnea Cardiac Disease: CAD Chest Pain RBBB RISK FACTORS Hypertension Hyperlipidemia Diabetes 2D DIMENSIONS IVSd1.3 (0.7-1.1cm)LVDd3.6 (3.9-5.9cm) PWd1.2 (0.7-1.1cm)LA [id number] (18-58mL) LVDs2.8 (2.5-4.0cm)FS (%) 21.8 % LVEF (%)70.0 (>50%)LVEF (Aburto's)69.06 % M-Mode DIMENSIONS Left Atrium (MM)3.00 (2.5-4.0cm)IVSd1.06 (0.7-1.1cm) Aortic Root3.73 (2.2-3.7cm)LVDd5.03 (4.0-5.6cm) Aortic Cusp Exc.1.87 (1.5-2.0cm)PWd1.15 (0.7-1.1cm) FS (%) 42 %LVDs2.92 (2.0-3.8cm) LVEF (%)73 (>50%) Mitral Valve MV E Jvvrsswk17.1cm/sMV A Jnvsfzql17.0cm/sE/A ratio1.3 TDI Lateral E' Peak V10.09cm/sMedial E' Peak V6.93cm/sE/Lateral E'6.8 E/Medial E'10.0 Tricuspid Valve TR Peak [id number]/sTR Peak [id number] LEFT VENTRICLE The left ventricle is normal size. There is normal left ventricular wall thickness. The left ventricular function is normal. The left ventricular ejection fraction is within the normal range. There is normal LV segmental wall motion. The left ventricular diastolic function is normal. RIGHT VENTRICLE The right ventricle is normal size. There is normal right ventricular wall thickness. The right ventricular systolic function is normal. ATRIA The left atrium size is normal. The right atrium size is normal. AORTIC VALVE The aortic valve is mildly thickened. No aortic regurgitation is present. There is no aortic valvular stenosis. MITRAL VALVE The mitral valve is mildly thickened. There is no mitral valve stenosis. There is no mitral valve regurgitation noted. TRICUSPID VALVE The tricuspid valve is normal in structure. There is trace tricuspid regurgitation. PULMONIC VALVE The pulmonary valve is normal in structure. There is trace pulmonic valvular regurgitation. GREAT VESSELS The aortic root is normal in size. The IVC is normal in size and collapses >50% with inspiration. PERICARDIAL EFFUSION There is no pericardial effusion. <Conclusion> The left ventricle is normal size. There is normal left ventricular wall thickness. The left ventricular function is normal. The left ventricular ejection fraction is within the normal range. There is normal LV segmental wall motion. The left ventricular diastolic function is normal.
--- NOTE | 2018-08-11 19:34 | CARD ---
APPROVED REPORT Date of service: 08/10/2018 EKG Measurement Heart [id number] <Conclusion> Normal sinus rhythm Right bundle branch block Abnormal ECG
== END 2018-08-11 16:43 | disposition home or self-care (01) ==
LOC: C.ER 20:17 → C.9E 23:27 → C.6T 23:49
PROVIDERS: ADMIT Internal Medicine Pulmonary Disease; ATTEND Internal Medicine Pulmonary Disease
DX: I45.10 Unspecified right bundle-branch block (principal); E11.9 Type 2 diabetes mellitus without complications; E78.5 Hyperlipidemia, unspecified; I10 Essential (primary) hypertension; I25.10 Atherosclerotic heart disease of native coronary artery without angina pectoris; M79.7 Fibromyalgia
CPT/HCPCS: 71046; 71275; 78582; 80053; 82550; 82553; 82948; 84484; 85025; 85610; 85730; 87804; 93005; 93306; 93970; 96372; A9540; A9558; G0378; J1650; Q9967